=== PATIENT | male | born 1970 | race Caucasian/White ===

== ENCOUNTER 2019-03-18 08:32 | Emergency (ER) | payer OTHER ==
--- NOTE | 2019-03-18 10:17 | ER Document Report ---
HPI - HPI Patient complains to provider of: headinjury Time Seen by Provider: 03/18/19 10:04 Pain Level: Denies Context: Patient is a 49-year-old male presents to the emergency department for generalized headache and intermittent dizziness. Patient states yesterday morning he was accidentally hit the back of his head by a tree limb. Denying any loss of consciousness or vomiting. States yesterday afternoon started with some generalized dizziness and a headache. Patient's denying any shortness of breath, chest pain, numbness or tingling in any extremities, blurred vision or change in his vision. Patient states he presents to urgent care this morning who told him he had to go to the emergency room for a CAT scan of his head to rule out a concussion. Patient's denying any medical problems, denies taking any daily medications to include blood thinners, denies any allergies. Past Medical History - General Information source: Patient - Social History Smoking Status: Unknown if Ever Smoked Family History: Reviewed & Not Pertinent Vertical Provider Document - CONSTITUTIONAL Agree With Documented VS: Yes Notes: GENERAL: Alert, interacts well. No acute distress. HEAD: Normocephalic, atraumatic. No boggy spots appreciated EYES: Pupils equal, round, and reactive to light. Extraocular movements intact. ENT: Oral mucosa moist, tongue midline. Nares patent, no nasal septal hematoma, TM's intact, no hemotympanum noted bilaterally NECK: Full range of motion. Supple. Trachea midline. LUNGS: Clear to auscultation bilaterally, no wheezes, rales, or rhonchi. No respiratory distress. HEART: Regular rate and rhythm. No murmur ABDOMEN: Soft, non-tender. Non-distended. Bowel sounds present in all 4 quadrants. EXTREMITIES: Moves all 4 extremities spontaneously. No edema, normal radial and dorsalis pedis pulses bilaterally. No cyanosis. 5 out of 5 strength all 4 extremities BACK: no cervical, thoracic, lumbar midline tenderness. No saddle anesthesia, normal distal neurovascular exam. NEUROLOGICAL: Alert and oriented x3. Normal speech. cranial nerves II through XII grossly intact. PSYCH: Normal affect, normal mood. SKIN: Warm, dry, normal turgor. No rashes or lesions noted. - INFECTION CONTROL TRAVEL OUTSIDE OF THE [place] IN LAST 30 DAYS: No Course - Re-evaluation Re-evalutation: 03/18/19 10:[address] head rule with patient at bedside. The recommendation is no CT at this time. Patient is in agreements with this plan. Patient is denying any want for Tylenol or Motrin in the emergency room. States he will follow-up with his primary care provider. Patient voices concern that the "doctor at urgent care could not have told us about this CT rule." Again discussed postconcussive syndrome with patient at bedside. Discussed close follow-up with primary care provider. At this time will discharge with return precautions and follow-up recommendations. Verbal discharge instructions given a the bedside and opportunity for questions given. Medication warnings reviewed. Patient is in agreement with this plan and has verbalized understanding of return precautions and the need for primary care follow-up in the next 24-72 hours. This medical record was dictated with voice recognizing software. There may be grammatical, syntax errors that are unintended. - Vital Signs Vital signs: Temp Pulse Resp BP Pulse Ox 97.5 F 57 L 16 137/92 H 97 03/18/19 08:44 03/18/19 08:44 03/18/19 08:44 03/18/19 08:44 03/18/19 08:44 Discharge - Discharge Clinical Impression: Minor head injury Qualifiers: Encounter type: initial encounter Qualified Code(s): S09.90XA - Unspecified injury of head, initial encounter Condition: Stable Disposition: HOME, SELF-CARE Instructions: Post-Concussion Syndrome ([facility]), Head Injury Precautions ([facility]) Additional Instructions: As we discussed you have been seen and treated in the emergency department after an injury to your head. You do not meet any criteria for CT imaging at this time. Please make sure you follow-up with your primary care provider in the next 24 to 48 hours. Please also make sure you return to the emergency room for any worsening in your symptoms or other concerns. Referrals: ELIER CARBONE, [Primary Care Provider] - Follow up as needed
[2019-03-18 10:32] VITALS: BP 144/95
== END 2019-03-18 10:33 | disposition home or self-care (01) ==
LOC: ER 08:32
DX: S09.90XA Unspecified injury of head, initial encounter (principal); R51 Headache; R42 Dizziness and giddiness; W22.8XXA Striking against or struck by other objects, initial encounter
CPT/HCPCS: 99283